=== PATIENT | male | born 1995 | race Two or more races ===

== ENCOUNTER 2016-05-28 20:19 | Emergency (ER) | payer OTHER ==
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
[~2016-05-28 20:19] MED LIST: LAMOTRIGINE; SEIZURE MED
== END 2016-05-28 21:33 | disposition home or self-care (01) ==
LOC: SED 20:19
DX: S90.31XA Contusion of right foot, initial encounter (principal); W05.2XXA Fall from non-moving motorized mobility scooter, initial encounter; Y92.009 Unspecified place in unspecified non-institutional (private) residence as the place of occurrence of the external cause
CPT/HCPCS: 73630; 99283